=== PATIENT | male | born 1935 | race Caucasian/White ===

== ENCOUNTER 2019-01-01 22:19 | Emergency (ER) | payer MEDICARE, OTHER ==
[~2019-01-01] VITALS: Ht 162.6 cm; Wt 73.5 kg
[2019-01-01 22:26] VITALS: BP 138/78; Ht 162.6 cm; Wt 73.5 kg
== END 2019-01-01 23:43 | disposition home or self-care (01) ==
LOC: ED 22:19
DX: G44.209 Tension-type headache, unspecified, not intractable (principal); F43.9 Reaction to severe stress, unspecified; M62.838 Other muscle spasm; I10 Essential (primary) hypertension; Z95.0 Presence of cardiac pacemaker; Z98.890 Other specified postprocedural states